=== PATIENT | female | born 1965 | race Caucasian/White ===

== ENCOUNTER 2025-01-17 06:19 | Emergency (ER) | payer OTHER ==
[~2025-01-17] VITALS: Ht 167.6 cm; Wt 72.2 kg
[2025-01-17 06:26] VITALS: BP 138/70; PULSE 82; RESP 16; TEMP 97.9; O2SAT 96
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
[2025-01-17] MEDS: ketorolac trometh 15mg/ml vial 15 MG/ML ML IM ONE (08:29)
== END 2025-01-17 10:17 | disposition home or self-care (01) ==
LOC: ER 06:21
DX: S16.1XXA Strain of muscle, fascia and tendon at neck level, initial encounter (principal); V49.9XXA Car occupant (driver) (passenger) injured in unspecified traffic accident, initial encounter; Y93.89 Activity, other specified; Y92.89 Other specified places as the place of occurrence of the external cause; Y99.8 Other external cause status
CPT/HCPCS: 72040; 96372; 99283; J1885